=== PATIENT | male | born 1975 | race Caucasian/White ===

== ENCOUNTER → 2020-07-26 | Outpatient (CLI) | payer OTHER ==
--- NOTE | 2020-07-29 14:01 | SLEEPCENT ---
DATE: 07/26/2020 NOCTURNAL POLYSOMNOGRAPHY ORDERED BY: NUVIA Foreman Nocturnal polysomnography was performed for evaluation of sleep physiology in this patient with a history of excessive somnolence and nonrestorative sleep. 7 hours and 42 minutes of data were reviewed. There were 298.5 minutes of sleep identified. Sleep latency was prolonged at 80 minutes. REM latency was normal at 87 minutes. Sleep architecture once established was good. There were three REM cycles appreciated. Overall sleep efficiency was 65.9%. The patient's electrocardiogram showed a sinus rhythm with an average heart rate of 58 beats per minute; rate range 48 to 80. EEG showed normal waveforms for wake and sleep. There were only four hypopneic respiratory events identified of 10 seconds in duration or greater for an apnea-hypopnea index of 0.8. Snoring was noted over the entire study and snore-related arousals occurred 1.8 times per hour. There was some minor limb activity and oxygen saturations remained 90% plus. IMPRESSION: Normal nocturnal polysomnography with snoring.
== END ==
LOC: M SLEEP 20:00
PROVIDERS: ATTEND Physician Assistant
DX: R40.0 Somnolence (principal); R06.83 Snoring

== ENCOUNTER → 2021-02-05 | Outpatient (CLI) | payer OTHER ==
--- NOTE | 2021-02-05 11:03 | PFTRPT ---
Height: 68.00 Inches Weight: 240.00 Lbs BSA: 2.21 Diagnosis: DYSPNEA DATE: 02/05/2021 ORDERING PHYSICIAN: Dr. Yahaira Magaña Pre and post bronchodilator studies have excellent technical quality. Forced vital capacity is normal. FEV1 is in proportion. Obstructive index is therefore normal. Expiratory limit of the flow-volume loop is normal. No significant bronchodilator response is identified. Total lung capacity is normal. Residual volume is in proportion. Diffusing capacity is normal. No hemoglobin available for correction. Airway resistance and conductance are normal. IMPRESSION: Essentially normal study. MTDD
== END ==
LOC: M CARPUL 10:06
PROVIDERS: ATTEND Family Medicine
DX: R06.02 Shortness of breath (principal)

== ENCOUNTER → 2021-03-24 | Day surgery (SDC) | payer OTHER ==
[~2021-03-24] VITALS: Ht 172.7 cm; Wt 108.9 kg
[~2021-03-24] MED LIST: CLONI1TA PO; LEXA1TAB2 PO; LIDOCAINE 2% 100MG/5ML SDV (FOR ANES.) As Ordered ONE; MAGN400C PO; NS 1,000 ML IV ONE; SYNT175T2 PO; TRAZ-257 PO; ZONI100C17 PO; fentaNYL 100 MCG/2 ML INJECTION (J3010) As Ordered ONE; propofoL 200 MG/20 ML VIAL As Ordered ONE
== END | disposition home or self-care (01) ==
LOC: M OPP 13:27
PROVIDERS: ATTEND Internal Medicine Gastroenterology
DX: R10.11 Right upper quadrant pain (principal); Z53.8 Procedure and treatment not carried out for other reasons

== ENCOUNTER 2021-04-01 10:05 | Day surgery (SDC) | payer OTHER ==
[~2021-04-01] VITALS: Ht 172.7 cm; Wt 116.1 kg
[~2021-04-01 10:05] MED LIST changes: -LIDOCAINE 2% 100MG/5ML SDV (FOR ANES.) As Ordered ONE; -fentaNYL 100 MCG/2 ML INJECTION (J3010) As Ordered ONE; -propofoL 200 MG/20 ML VIAL As Ordered ONE
[2021-04-01] MEDS ORDERED: fentaNYL 100 MCG/2 ML INJECTION (J3010) As Ordered ONE (11:13)
[2021-04-01] MEDS ORDERED: propofoL 200 MG/20 ML VIAL As Ordered ONE (11:13)
[2021-04-01] MEDS ORDERED: LIDOCAINE 2% 100MG/5ML SDV (FOR ANES.) As Ordered ONE (11:13)
--- NOTE | 2021-04-01 12:29 | ROOR ---
Patient Name: Romario Zapata Procedure Date: 04/01/2021 12:03 PM Date of : 1975 Age: 45 Room: [facility] Gender: Male Note Status: Finalized Procedure: Upper GI endoscopy Indications: Abdominal pain in the right upper quadrant, Dyspepsia Providers: Saqib Montero MD Referring MD: SARAH SMITH MD Requesting Provider: Medicines: Monitored Anesthesia Care Complications: No immediate complications. Procedure: Pre-Anesthesia Assessment: - Prior to the procedure, a History and Physical was performed, and patient medications and allergies were reviewed. The patient is competent. The risks and benefits of the procedure and the sedation options and risks were discussed with the patient. All questions were answered and informed consent was obtained. Patient identification and proposed procedure were verified by the physician, the nurse and the anesthesiologist in the procedure room. Mental Status Examination: alert and oriented. Airway Examination: normal oropharyngeal airway and neck mobility. Respiratory Examination: clear to auscultation. CV Examination: normal. Prophylactic Antibiotics: The patient does not require prophylactic antibiotics. Prior Anticoagulants: The patient has taken no previous anticoagulant or antiplatelet agents. ASA Grade Assessment: II - A patient with mild systemic disease. After reviewing the risks and benefits, the patient was deemed in satisfactory condition to undergo the procedure. The anesthesia plan was to use monitored anesthesia care (MAC). Immediately prior to administration of medications, the patient was re-assessed for adequacy to receive sedatives. The heart rate, respiratory rate, oxygen saturations, blood pressure, adequacy of pulmonary ventilation, and response to care were monitored throughout the procedure. The physical status of the patient was re-assessed after the procedure. The Endoscope was introduced through the mouth, and advanced to the second part of duodenum. The upper GI endoscopy was accomplished without difficulty. The patient tolerated the procedure well. Findings: The examined esophagus was normal. The Z-line was regular and was found at the gastroesophageal junction. Scattered mild inflammation characterized by erythema and granularity was found in the gastric antrum. Biopsies were taken with a cold forceps for Helicobacter pylori testing. Biopsies were taken with a cold forceps for Helicobacter pylori testing. The duodenal bulb and second portion of the duodenum were normal. Biopsies for histology were taken with a cold forceps for evaluation of celiac disease. Verification of patient identification for the specimen was done by the physician and nurse using the patient's name, date and medical record number. Estimated blood loss was minimal. Impression: - Normal esophagus. - Z-line regular, at the gastroesophageal junction. - Gastritis. Biopsied. - Normal duodenal bulb and second portion of the duodenum. Biopsied. Recommendation: - Patient has a contact number available for emergencies. The signs and symptoms of potential delayed complications were discussed with the patient. Return to normal activities tomorrow. Written discharge instructions were provided to the patient. - High fiber diet. - Continue present medications. - Await pathology results. - Telephone GI clinic for pathology results in 2 weeks. - Return to GI clinic if persistent symptoms or new symptoms. - Return to referring physician. Procedure Code(s): --- Professional --- 09218, Esophagogastroduodenoscopy, flexible, transoral; with biopsy, single or multiple Diagnosis Code(s): --- Professional --- K29.70, Gastritis, unspecified, without bleeding R10.11, Right upper quadrant pain R10.13, Epigastric pain CPT copyright 2019 [employer]. All rights reserved. The codes documented in this report are preliminary and upon wireworker review may be revised to meet current compliance requirements. Saqib Montero MD Saqib Montero MD 04/01/2021 12:29:08 PM Electronically signed by Saqib Montero MD Number of Addenda: 0 Note Initiated On: 04/01/2021 12:03 PM Estimated Blood Loss: Estimated blood loss was minimal.
[2021-04-01 12:40] VITALS: BP 144/89
== END 2021-04-01 13:10 | disposition home or self-care (01) ==
LOC: M OPP 10:05
PROVIDERS: ATTEND Internal Medicine Gastroenterology
DX: K29.70 Gastritis, unspecified, without bleeding (principal); R10.11 Right upper quadrant pain; K30 Functional dyspepsia; E06.3 Autoimmune thyroiditis; Z79.899 Other long term (current) drug therapy; F17.210 Nicotine dependence, cigarettes, uncomplicated
CPT/HCPCS: 43239; 88305; J3010

== ENCOUNTER → 2021-04-21 | Outpatient (REF) ==
[~2021-04-21] MED LIST changes: -NS 1,000 ML IV ONE
--- NOTE | 2021-04-21 15:50 | REP ---
INDICATION: SOB/PAIN. COMPARISON: None. TECHNIQUE: Four views FINDINGS: No acute fracture or destructive osseous lesion. The mortise is intact. There is a small exostosis arising from the base of the medial malleolus. IMPRESSION: No acute osseous <Electronically signed by Junior Mejias > 04/21/21 [id number]
--- NOTE | 2021-04-21 15:50 | REP ---
INDICATION: SOB/PAIN. COMPARISON: None. TECHNIQUE: PA and lateral FINDINGS: The superior mediastinal structures are midline. The cardiac silhouette is unremarkable in size, shape, and position. The diaphragmatic surfaces of the lungs are regular, and the costophrenic angles are clear. The pulmonary perez are clear. The imaged osseous structures are intact. IMPRESSION: There is no acute cardiopulmonary disease. <Electronically signed by Junior Mejias > 04/21/21 [id number]
--- NOTE | 2021-04-21 15:57 | REP ---
INDICATION: SOB/PAIN. COMPARISON: None. TECHNIQUE: Three views of the bilateral shoulder were performed. FINDINGS: Bilateral: The acromioclavicular and glenohumeral relationships are within normal limits. There is no acute fracture or destructive osseous lesion. IMPRESSION: No acute abnormality seen bilateral <Electronically signed by Junior Mejias > 04/21/21 [id number]
== END ==
LOC: M PLAIMG 15:08
PROVIDERS: ATTEND Internal Medicine
DX: R06.02 Shortness of breath (principal); M25.511 Pain in right shoulder; M25.512 Pain in left shoulder; M25.571 Pain in right ankle and joints of right foot

== ENCOUNTER → 2021-07-02 | Outpatient (REF) | LOC: M LABSMTC 12:19 | PROVIDERS: ATTEND Pediatrics | DX: Z20.822 Contact with and (suspected) exposure to COVID-19 (principal) ==

== ENCOUNTER → 2022-05-18 | Outpatient (CLI) | payer OTHER ==
[~2022-05-18] MED LIST changes: -ZONI100C17 PO; +ZONI100C67 PO
[2022-05-18 11:49] LABS: FREE T4 1.41 NG/DL (0.89-1.76)
[2022-05-18 11:50] LABS: THYROID STIMULATING HORMONE 1.216 uIU/ML (0.55-4.78)
== END ==
LOC: M PLALAB 08:31
PROVIDERS: ATTEND Nurse Practitioner Family
DX: E06.3 Autoimmune thyroiditis (principal)